=== PATIENT | female | born 1995 | race Caucasian/White ===

== ENCOUNTER 2019-09-12 13:52 | Emergency (ER) | payer BC ==
[~2019-09-12] VITALS: Ht 157.5 cm; Wt 70.8 kg
[2019-09-12] MEDS ORDERED: IBUPROFEN 600 MG TABLET PO ONE ×2 (14:43→15:00)
[2019-09-12] MEDS ORDERED: ONDANSETRON 4 MG TAB.RAPDIS ONE (14:44)
[2019-09-12] MEDS ORDERED: ONDANSETRON HCL 4 MG/5 ML SOLUTION PO ONE (15:00)
[2019-09-12 15:01] VITALS: BP 124/62
== END 2019-09-12 15:02 | disposition home or self-care (01) ==
LOC: ER 13:54
DX: F11.23 Opioid dependence with withdrawal (principal); F17.200 Nicotine dependence, unspecified, uncomplicated
CPT/HCPCS: 99283; Q0162

== ENCOUNTER 2019-11-07 12:58 | Emergency (ER) | payer BC ==
[~2019-11-07] VITALS: Ht 157.5 cm; Wt 77.1 kg
[2019-11-07 13:02] VITALS: BP 131/75
[2019-11-07] MEDS ORDERED: LIDOCAINE /MPF 1% VIAL 5 ML VIAL ONE (13:29)
[2019-11-07] MEDS ORDERED: AZITHROMYCIN 250 MG TABLET ONE (13:29)
[2019-11-07] MEDS ORDERED: CEFTRIAXONE 500 MG VIAL ONE (13:29)
[2019-11-07] MEDS ORDERED: CEFTRIAXONE 500 MG VIAL IM ONE (13:30)
[2019-11-07] MEDS ORDERED: AZITHROMYCIN 250 MG TABLET PO ONE (13:30)
[2019-11-07 13:32] LABS: BASOPHILS % (AUTO) 0.7 % (0.0-2.0); EOSINOPHILS % (AUTO) 3.6 % (0.0-6.0); HEMATOCRIT 39 % (33-45); HEMOGLOBIN 13.1 g/dL (11.5-14.8); LYMPHOCYTES # (AUTO) 2.3 /CMM (0.8-4.8); LYMPHOCYTES % (AUTO) 37.1 % (20.0-44.0); MEAN CORPUSCULAR HGB CONC 34 g/dl (31.0-36.0); MEAN CORPUSCULAR VOLUME 85 fL (82-100); MONOCYTES # (AUTO) 0.4 /CMM (0.1-1.30); MONOCYTES % (AUTO) 6.4 % (2.0-12.0); NEUTROPHILS # (AUTO) 3.2 /CMM (1.8-8.9); NEUTROPHILS % (AUTO) 52.2 % (43.0-81.0); PLATELET COUNT (AUTO) 237 /CMM (150-450); RED BLOOD CELL COUNT(AUTO) 4.63 MIL/uL (4.0-5.2); WHITE BLOOD COUNT (AUTO) 6.2 K/uL (4.3-11.0)
[2019-11-07 13:34] LABS: APPEARANCE,URINE Clear (CLEAR); BILIRUBIN,URINE Negative (NEGATIVE); BLOOD, URINE Negative Ery/uL (NEGATIVE); COLOR,URINE Yellow (YELLOW); KETONES,URINE Negative (NEGATIVE); LEUKOCYTE ESTERASE ,URINE Negative (NEGATIVE); NITRITE, URINE Negative (NEGATIVE); PH,URINE 5.5 (5.0-8.0); PROTEIN,URINE Negative (NEGATIVE); UGLUCOSE Negative (NEGATIVE); UROBILINOGEN,URINE 0.2 EU/dL (0.2)
[2019-11-07 13:43] LABS: CALCIUM, SERUM 9.3 mg/dL (8.5-10.1); CREATININE 0.7 mg/dL (0.6-1.3); POTASSIUM 4.4 mmol/L (3.5-5.1)
[2019-11-07 13:48] LABS: ALBUMIN 3.9 g/dL (3.4-5.0); BILIRUBIN,TOTAL 0.1 mg/dL (0.2-1.0); TOTAL PROTEIN, SERUM 7.6 g/dL (6.4-8.2)
== END 2019-11-07 14:46 | disposition home or self-care (01) ==
LOC: ER 13:00
DX: Z20.2 Contact with and (suspected) exposure to infections with a predominantly sexual mode of transmission (principal)
CPT/HCPCS: 36415; 80053; 80074; 81001; 85025; 87210; 87491; 87591; 96372; 99283; J0696; J3490; 81000-TC